=== PATIENT | female | born 1965 | race Caucasian/White ===

== ENCOUNTER 2017-07-12 11:59 | Day surgery (SDC) | payer OTHER ==
[~2017-07-12] VITALS: Ht 162.6 cm; Wt 116.1 kg
[~2017-07-12 11:59] MED LIST: 24 HOUR ALLER15.8 ML NAS; ESOMEPRAZOLE MA20 MG PO; LOSARTAN POTASS50 MG PO
--- NOTE | 2017-07-12 13:44 | NUR ---
07/12/17 1344 Estee Vaughn 1341-PATIENT ARRIVED TO PACU ON 3L NC O2 SAT 100% WEANED TO 2L NC. PATIENT AWAKE DENIES PAIN OR NAUSEA. RR EVEN. ABDOMEN SOFT.
--- NOTE | 2017-07-14 09:30 | OR ---
[facility] [address] [place], [place] [address] Signed DATE OF OPERATION: 07/12/2017 SURGEON: Boyd Null MD PREOPERATIVE DIAGNOSES: 1. Abdominal bloating, constipation, right-sided abdominal pain. 2. History of cholecystectomy, 2006. POSTOPERATIVE DIAGNOSES: Hyperplastic polyps of rectum, rectosigmoid, and sigmoid, otherwise normal. PROCEDURE: Total colonoscopy to cecum with biopsy of right colon and cold morcellation polypectomy x3. ANESTHESIA: Intravenous sedation fentanyl 100 mcg, Versed 10 mg. INDICATION: This 51-year-old white woman is a patient of Dr. Mchugh and has had complaints of generalized abdominal pain, bloating and right-sided abdominal pain as well. Notably, she has had cholecystectomy in 2006, by Dr. Esparza. It was uncertain to me if a cholangiogram was done at that time. She has normal liver enzymes and most likely has a problem of irritable bowel syndrome, with constipation predominant though. Colonoscopy is recommended, particularly as she has never had colon evaluation in the past. The risks of bleeding, infection, and perforation were reviewed with her in detail. She understands wished to proceed. FINDINGS: The prep was reasonably good, but she was only able to take half of her bowel prep, though she did go on a low-fiber diet several days in advance. There was no evidence of inflammatory bowel disease. A right-sided biopsy was obtained to assess for occult colitis however. There were three hyperplastic polyps, one in the rectum, other rectosigmoid, another in the sigmoid, all excised with cold morcellation technique. Retroflexed view was normal. DESCRIPTION OF PROCEDURE: The patient was brought to the operating room to temporary endoscopy suite, placed in lateral decubitus position given intravenous sedation to the point of slurred speech and nystagmus with full cardiopulmonary monitoring. Digital rectal examination was normal. Electronically Signed By: BOYD NULL MD 07/14/17 0930 PATIENT NAME: KEN GONZALEZ OPERATIVE REPORT DATE OF : 69 REPORT #: [id number] PHYSICIAN: BOYD NULL MD PCP: KALI MCHUGH DO REPORT IS CONFIDENTIAL AND NOT TO BE RELEASED WITHOUT AUTHORIZATION [facility] [address] [place], [place] [address] Signed The Olympus video colonoscope was passed in the rectum and manipulated throughout the colon ultimately intubating the cecum, irrigation was undertaken as needed. There was no solid stool, though there was some mucoid surface covering here and there. The mucosa appeared normal. The scope was withdrawn and in the mid ascending colon, a small biopsy was obtained. Further withdrawal of scope showed no abnormality until approximately the sigmoid where a small hyperplastic polyp was noted. This was excised with cold morcellation technique. Further withdrawal of scope to the rectosigmoid showed another hyperplastic appearing polyp. It too was excised. Another small polyp was noted in the superior rectum. This was excised as well. Retroflexed view of the rectum was essentially normal. Scope was straightened, withdrawn, and removed. The patient was taken to recovery room in good condition. CONCLUDING DIAGNOSES: No evidence of inflammatory bowel disease. No diverticular changes. Hyperplastic polyps of little consequence. 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 PLAN: We will initiate a low FODMAP diet. She will see me in approximately six weeks and we will assess her progress at that point. We will review her pathology reports as well. MD KRISTINE Ruiz/MODL /[id number] cc: Kali Mchugh DO Copies: KALI MCHUGH DO ~ Electronically Signed By: BOYD NULL MD 07/14/17 0930 PATIENT NAME: KEN GONZALEZ OPERATIVE REPORT DATE OF : 69 REPORT #: [id number] PHYSICIAN: BOYD NULL MD PCP: KALI MCHUGH DO REPORT IS CONFIDENTIAL AND NOT TO BE RELEASED WITHOUT AUTHORIZATION
== END 2017-07-12 14:27 | disposition home or self-care (01) ==
LOC: OPS 11:59 → DS 11:59 → OPS 13:00 → DS 13:00 → OPS 14:27
PROVIDERS: Surgery
PROC: 0DBN8ZX Excision of Sigmoid Colon, Via Natural or Artificial Opening Endoscopic, Diagnostic (ICD-10-PCS; 2017-07-12)
PROC: 0DBF8ZX Excision of Right Large Intestine, Via Natural or Artificial Opening Endoscopic, Diagnostic (ICD-10-PCS; principal; 2017-07-12 13:00)
DX: K63.5 Polyp of colon (principal); K62.1 Rectal polyp; E66.01 Morbid (severe) obesity due to excess calories; I10 Essential (primary) hypertension; J45.909 Unspecified asthma, uncomplicated; K21.0 Gastro-esophageal reflux disease with esophagitis; Z68.41 Body mass index [BMI] 40.0-44.9, adult
CPT/HCPCS: 99153; G0500; J2250; J3010; J7120

== ENCOUNTER 2017-08-25 10:38 | Day surgery (SDC) | payer OTHER ==
[~2017-08-25] VITALS: Ht 162.6 cm; Wt 116.1 kg
[~2017-08-25 10:38] MED LIST changes: +CHLORHEXIDINE473 ML MM
[2017-08-25] MEDS ORDERED: MULTIVITAMINS1 EAC7 PO (10:57)
--- NOTE | 2017-08-25 14:35 | NUR ---
08/25/17 1435 Estee Vaughn 1431-PATIENT ARRIVED TO PACU ON 2L NC O2 SAT 100% PATIENT AWAKE DENIES PAIN OR NAUSEA. RR EVEN.
--- NOTE | 2017-08-25 18:35 | OR ---
[facility] [address] [place], [place] [address] Signed DATE OF OPERATION: 08/25/2017 SURGEON: Boyd Null MD PREOPERATIVE DIAGNOSES: 1. Longstanding gastroesophageal reflux symptoms. 2. Persistent epigastric pain and history of cholecystectomy in 2006 (Dr. Esparza). POSTOPERATIVE DIAGNOSES: 1. Hiatal hernia without significant esophagitis. 2. Gastric polyps. 3. Possible bile reflux gastritis. PROCEDURE PERFORMED: Esophagogastroduodenoscopy with biopsy. ANESTHESIA: Intravenous sedation with fentanyl 100 mcg and Versed 4 mg. INDICATIONS FOR PROCEDURE: This is a very pleasant, obese, 51-year-old white woman underwent laparoscopic cholecystectomy by Dr. Esparza in 2006 for acalculous cholecystitis. Since that time, she has had significant epigastric and reflux type symptoms. She does take PPI medication for her reflux symptoms. She has also had constipation long-standing and underwent colonoscopy showing no sign of abnormality. She has recently described herself as having Sjogren's disease. She has a dry mouth and other symptoms. Her primary provider is Dr. Mchugh. She was admitted at this time to undergo upper endoscopy to better characterize the symptoms she has of epigastric pain and right subcostal pain, mindful of her prior cholecystectomy and ongoing reflux disease treated with PPI medication. She understands the risks of bleeding, infection, and perforation related to upper endoscopy and wished to proceed. FINDINGS: The esophagus did not look to be severely inflamed. There was no sign of Ortega's epithelium, stricture, or neoplasm. The stomach itself looked reasonably normal, though she had a number of polyps and ruled out fundic gland polyps related to PPI use. Pylorus was normal as was the duodenum. Biopsies were obtained nevertheless. Retroflexed view did confirm a moderate-sized hiatal hernia. CLOtest was negative. Note was made of bile refluxing into the stomach from the pylorus at the outset of the procedure and some consideration, this may represent a mild reflux gastritis was made. Electronically Signed By: BOYD NULL MD 08/25/17 1835 PATIENT NAME: KEN GONZALEZ OPERATIVE REPORT DATE OF : 69 REPORT #: [id number] PHYSICIAN: BOYD NULL MD PCP: GAYLA BERMEO PAC REPORT IS CONFIDENTIAL AND NOT TO BE RELEASED WITHOUT AUTHORIZATION [facility] [address] [place], [place] [address] Signed DESCRIPTION OF PROCEDURE: The patient was brought to the endoscopy suite and placed in lateral decubitus position after undergoing topical Hurricaine spray hypopharyngeal anesthesia. She was given intravenous sedation to the point of slurred speech and nystagmus. A bite block was placed. An Olympus video upper endoscope was passed in the hypopharynx and the vocal cords were normal. Scope was advanced to the esophagus and throughout its length, it was normal. No sign of Ortega's epithelium, stricture, or neoplasm. There were no varices. The scope was advanced to the stomach, which was insufflated with air. Rugal folds were normal. The pylorus was normal as was the antrum. The scope was passed through the pylorus into the duodenum, which was normal. Biopsies were obtained for celiac disease. The scope was withdrawn and the antral biopsies undertaken for both LUIZ and pathologic testing. Retroflexed view undertaken showed a moderately large hiatal hernia. There were a number of gastric polyps noted. Rugal folds were normal. [employer] polyps were excised for pathology. The scope was then withdrawn to the distal esophagus, where close inspection showed minimal if any inflammatory change. No sign of varices. No stricture. No Ortega's epithelium. No neoplasm. Biopsies were taken and the scope withdrawn. At this point, it was noted by the operating crew that the photo capture device had failed in capturing photos as planned. On that basis, the scope was reintroduced and access representative photos taken again. Notably, there was some blood in the stomach related to biopsies and therefore, it should be noted upon review of those photos that biopsies have been taken. The scope was then removed and the patient was then taken to recovery room in good condition. CONCLUDING DIAGNOSES: 1. Hiatal hernia with longstanding reflux symptoms, well-managed by PPI medication. 2. Gastric polyps, probably related to PPI medication. 3. Reflux of bile into the stomach, possibly accounting for symptoms. PLAN: We will initiate Carafate 1 g p.o. q.i.d. on empty stomach and see me back in 4 to 6 weeks to assess her progress. MD KRISTINE Ruiz/ANTONI Electronically Signed By: BOYD NULL MD 08/25/17 1835 PATIENT NAME: KEN GONZALEZ OPERATIVE REPORT DATE OF : 69 REPORT #: [id number] PHYSICIAN: BOYD NULL MD PCP: GAYLA BERMEO PAC REPORT IS CONFIDENTIAL AND NOT TO BE RELEASED WITHOUT AUTHORIZATION [address] [address] Signed /[id number] cc: Kali Mchugh DO Copies: KALI MCHUGH DO ~ Electronically Signed By: BOYD NULL MD 08/25/17 1835 PATIENT NAME: KEN GONZALEZ OPERATIVE REPORT DATE OF : 69 REPORT #: [id number] PHYSICIAN: BOYD NULL MD PCP: GAYLA BERMEO PAC REPORT IS CONFIDENTIAL AND NOT TO BE RELEASED WITHOUT AUTHORIZATION
== END 2017-08-25 15:12 | disposition home or self-care (01) ==
LOC: DS 10:38 → OPS 10:38 → DS 12:00 → OPS 12:00
PROVIDERS: Surgery
PROC: 0DB78ZX Excision of Stomach, Pylorus, Via Natural or Artificial Opening Endoscopic, Diagnostic (ICD-10-PCS; 2017-08-25)
PROC: 0DB68ZX Excision of Stomach, Via Natural or Artificial Opening Endoscopic, Diagnostic (ICD-10-PCS; 2017-08-25)
PROC: 0DB58ZX Excision of Esophagus, Via Natural or Artificial Opening Endoscopic, Diagnostic (ICD-10-PCS; 2017-08-25)
PROC: 0DB98ZX Excision of Duodenum, Via Natural or Artificial Opening Endoscopic, Diagnostic (ICD-10-PCS; principal; 2017-08-25 12:00)
DX: K29.80 Duodenitis without bleeding (principal); K31.7 Polyp of stomach and duodenum; K22.8 Other specified diseases of esophagus; K44.9 Diaphragmatic hernia without obstruction or gangrene; K31.9 Disease of stomach and duodenum, unspecified; E66.01 Morbid (severe) obesity due to excess calories; K21.0 Gastro-esophageal reflux disease with esophagitis; K59.00 Constipation, unspecified; I10 Essential (primary) hypertension; K62.5 Hemorrhage of anus and rectum; J45.909 Unspecified asthma, uncomplicated; Z90.49 Acquired absence of other specified parts of digestive tract; Z68.41 Body mass index [BMI] 40.0-44.9, adult
CPT/HCPCS: 99153; G0500; J2250; J3010; J7120

== ENCOUNTER 2017-09-28 16:58 | Emergency (ER) | payer OTHER ==
[~2017-09-28] VITALS: Ht 162.6 cm; Wt 116.1 kg
[~2017-09-28 16:58] MED LIST changes: +MULTIVITAMINS1 EAC7 PO
[2017-09-28] MEDS ORDERED: SUCRALFATE1 GM PO (17:17)
[2017-09-28] MEDS ORDERED: CITRATE OF MAG296 ML PO (18:41)
== END 2017-09-28 19:00 | disposition home or self-care (01) ==
LOC: ED 16:58
DX: K59.00 Constipation, unspecified (principal); Z79.899 Other long term (current) drug therapy
CPT/HCPCS: 74177; 80053; 81001; 82150; 83690; 85025; 96361; 96374; 96375; 99284; J1170; J2405; J7030; Q9967

== ENCOUNTER 2020-05-28 12:27 | Emergency (ER) | payer BC ==
[~2020-05-28] VITALS: Ht 162.6 cm; Wt 113.4 kg
[~2020-05-28 12:27] MED LIST changes: +BLACK COHOSH40 MG PO; +CITRATE OF MAG296 ML PO; +DOCUSATE SODIU100 MG; +ESTROVEN MAX400 MCG PO; +OMEPRAZOLE20 MG PO; +SUCRALFATE1 GM PO
[2020-05-28] MEDS ORDERED: NEXIUM20 MG PO (12:48)
--- NOTE | 2020-05-28 13:57 | EKG ---
[facility] [address] [facility] [place], [place] [address] Signed Sinus bradycardia Otherwise normal ECG No previous ECGs available Confirmed by JEROD SOLIS DO ([id number]) on 05/28/2020 1:57:28 PM Electronically Signed By: JEROD SOLIS DO 05/28/20 1357 PATIENT NAME: KEN GONZALEZ Electrocardiogram DATE OF : 69 PHYSICIAN: JEROD SOLIS DO REPORT #: [id number] REPORT IS CONFIDENTIAL AND NOT TO BE RELEASED WITHOUT AUTHORIZATION
[2020-05-28] MEDS ORDERED: NITROGLYCERIN0.4 MG SL (17:49)
== END 2020-05-28 18:15 | disposition home or self-care (01) ==
LOC: ED 12:27
DX: R07.2 Precordial pain (principal); Z88.8 Allergy status to other drugs, medicaments and biological substances; Z79.899 Other long term (current) drug therapy
CPT/HCPCS: 71045; 80053; 83735; 84484; 85025; 85379; 93005; 93010; 99285-25